=== PATIENT | female | born 1980 | race Caucasian/White ===

== ENCOUNTER 2022-02-03 15:19 | Outpatient (CLI) | payer OTHER, SELFPAY ==
[2022-02-05 21:21] LABS: Anti-Mullerian Hormone 1.637 ng/mL (<=6.282)
[2022-02-07 13:12] LABS: Progesterone, HPLC-MS/MS 10.91 ng/mL
== END 2022-02-03 15:20 | disposition home or self-care (01) ==
PROVIDERS: PCP Family Medicine; Visit Provider Physician Assistant
DX: Z31.69 Encounter for other general counseling and advice on procreation (principal)
CPT/HCPCS: 83520; 84144; 84443

== ENCOUNTER 2022-03-11 08:56 | Outpatient (CLI) | payer OTHER, SELFPAY | END 2022-03-11 08:57 | disposition home or self-care (01) | PROVIDERS: Physician Assistant; PCP Family Medicine; Visit Provider Obstetrics & Gynecology | DX: O20.9 Hemorrhage in early pregnancy, unspecified (principal); Z31.69 Encounter for other general counseling and advice on procreation | CPT/HCPCS: 84443; 84702; 86850; 86900; 86901 ==

== ENCOUNTER 2022-03-12 14:22 | Outpatient (CLI) | payer OTHER, SELFPAY | END 2022-03-12 14:23 | disposition home or self-care (01) | LOC: NFLDREF 14:23 | PROVIDERS: PCP Family Medicine; Visit Provider Advanced Practice Midwife | DX: O03.9 Complete or unspecified spontaneous abortion without complication (principal) | CPT/HCPCS: 85461; J2791 ==

== ENCOUNTER 2022-03-18 08:18 | Outpatient (CLI) | payer OTHER, SELFPAY ==
[2022-03-18 10:27] LABS: HCG Quantitative* 270.24 mIU/mL
== END 2022-03-18 08:19 | disposition home or self-care (01) ==
PROVIDERS: Advanced Practice Midwife; Obstetrics & Gynecology; PCP Family Medicine; Visit Provider Advanced Practice Midwife
DX: O03.9 Complete or unspecified spontaneous abortion without complication (principal); O20.9 Hemorrhage in early pregnancy, unspecified
CPT/HCPCS: 84702; 86850

== ENCOUNTER 2022-06-17 07:39 | Outpatient (CLI) | payer OTHER, SELFPAY ==
[2022-06-17 15:44] LABS: Chlamydia DNA Amplified* NOT DETECTED (No Detected); GC DNA Amplified* NOT DETECTED (No Detected)
== END 2022-06-17 07:40 | disposition home or self-care (01) ==
PROVIDERS: PCP Family Medicine; Visit Provider Physician Assistant
DX: Z34.90 Encounter for supervision of normal pregnancy, unspecified, unspecified trimester (principal)
CPT/HCPCS: 0353U; 84443; 86592; 86703; 86762; 86787; 86803; 86850; 86870; 86880; 86900; 86901; 87086; 87340; 87491; 87591

== ENCOUNTER 2022-06-17 09:04 | Outpatient (CLI) | payer OTHER, SELFPAY ==
--- NOTE | 2022-06-17 09:15 | CRLHL7_ITS ---
For Patients: As a result of the Cures Act, medical imaging exams and procedure reports are released immediately into your electronic medical record. You may view this report before your referring provider. If you have questions, please contact your health care provider. INDICATION: First trimester scan, establish dates. COMPARISON: None. TECHNIQUE: Real-time giles-scale imaging of the pelvis was performed. FINDINGS: Sonographic imaging demonstrates a single living intrauterine gestation. The embryo demonstrates a regular cardiac rate measuring 174 beats per minute. The embryo`s crown-rump length measurement of 3.0 cm corresponds to a gestational age of 10 weeks 0 days with a sonographic due date of 01/13/2023. There is a normal-appearing yolk sac. There are no gross abnormalities noted within the embryo at this early state of development. The gestational sac has a normal appearance. There is no evidence of a perigestational hemorrhage. The amount of fluid within the sac appears appropriate for gestational age. The cervix is closed. The myometrium appears normal. The ovaries are of normal size. There are no suspicious fluid collections noted in the cul-de-sac. IMPRESSION: Normal first trimester OB ultrasound exam. Gestational age calculated at 10 weeks 0 days with a sonographic due date of 01/13/2023. Dictated by Rodrigue Garza MD @ 06/17/2022 12:36:50 PM (Electronically Signed)
== END 2022-06-17 09:05 | disposition home or self-care (01) ==
PROVIDERS: PCP Family Medicine; Visit Provider Physician Assistant
DX: Z34.91 Encounter for supervision of normal pregnancy, unspecified, first trimester (principal); Z3A.10 10 weeks gestation of pregnancy
CPT/HCPCS: 76801

== ENCOUNTER 2022-08-19 07:41 | Outpatient (CLI) | payer OTHER, SELFPAY | END 2022-08-19 07:42 | disposition home or self-care (01) | LOC: NFLDREF 07:42 | PROVIDERS: PCP Family Medicine; Visit Provider Physician Assistant | DX: O09.522 Supervision of elderly multigravida, second trimester (principal); Z3A.18 18 weeks gestation of pregnancy | CPT/HCPCS: 84443 ==

== ENCOUNTER 2022-10-20 11:13 | Outpatient (CLI) | payer OTHER, SELFPAY | END 2022-10-20 11:14 | disposition home or self-care (01) | LOC: NFLDREF 10-21 12:28 | PROVIDERS: PCP Family Medicine; Referring Provider Family Medicine; Visit Provider Registered Nurse | DX: Z34.90 Encounter for supervision of normal pregnancy, unspecified, unspecified trimester (principal) | CPT/HCPCS: 86592; 86850 ==

== ENCOUNTER 2022-11-03 10:47 | Outpatient (CLI) | payer OTHER, SELFPAY | END 2022-11-03 10:48 | disposition home or self-care (01) | PROVIDERS: PCP Family Medicine; Visit Provider Physician Assistant | DX: O09.523 Supervision of elderly multigravida, third trimester (principal); Z3A.29 29 weeks gestation of pregnancy | CPT/HCPCS: 84443 ==

== ENCOUNTER 2022-11-23 09:46 | Outpatient (CLI) | payer OTHER, SELFPAY ==
--- NOTE | 2022-11-23 09:45 | CRLHL7_ITS ---
For Patients: As a result of the Century Cures Act, medical imaging exams and procedure reports are released immediately into your electronic medical record. You may view this report before your referring provider. If you have questions, please contact your health care provider. INDICATION: Third trimester scan, evaluate growth. Advanced maternal age. COMPARISON: 06/17/2022 TECHNIQUE: Real time giles scale imaging of the fetus was performed. FINDINGS: Sonographic imaging demonstrates a single living intrauterine gestation. Fetus demonstrates a regular cardiac rate of 146 beats per minute. Fetus has a breech position. The placenta lies posteriorly. Amniotic fluid volume appears normal and there is a single deepest vertical pocket: 5.6 cm. The estimated weight is 1937gm which lies at the 30th %. BPD 43rd percentile. HC 25th percentile. AC 31st percentile. FL 34th percentile. The HC/AC ratio measures 1.07 range (0.96-1.12). IMPRESSION: Sonographic gestational age 32 weeks 4 days and sonographic due date of 01/14/2023. Good correlation with dates. Estimated weight 30th percentile. Abdominal circumference 31st percentile. Dictated by Rodrigue Garza MD @ 11/23/2022 10:57:05 AM (Electronically Signed)
== END 2022-11-23 09:47 | disposition home or self-care (01) ==
LOC: US 09:46
PROVIDERS: PCP Family Medicine; Visit Provider Physician Assistant
DX: O09.523 Supervision of elderly multigravida, third trimester (principal); Z3A.32 32 weeks gestation of pregnancy
CPT/HCPCS: 76816

== ENCOUNTER 2022-12-21 07:15 | Outpatient (CLI) | payer OTHER, SELFPAY ==
--- NOTE | 2022-12-21 07:15 | CRLHL7_ITS ---
For Patients: As a result of the Century Cures Act, medical imaging exams and procedure reports are released immediately into your electronic medical record. You may view this report before your referring provider. If you have questions, please contact your health care provider. INDICATION: AMA, f/u growth COMPARISON: 11/23/2022 TECHNIQUE: Real time giles scale imaging of the fetus was performed. FINDINGS: Sonographic imaging demonstrates a single living intrauterine gestation. Fetus demonstrates a regular cardiac rate of 128 beats per minute. Fetus has a vertex position. The placenta lies posteriorly. Amniotic fluid volume appears normal and there is a single deepest vertical pocket: 4.6 cm. The estimated weight is 2715gm which lies at the 28th %. On the prior OB ultrasound exam dated 11/23/2022 the estimated weight was at the 30th%. BPD 26th percentile. HC 39th percentile. AC 35th percentile. FL 11th percentile. The HC/AC ratio measures 1.03 range (0.93-1.08). There is adequate diastolic blood flow within the umbilical artery. IMPRESSION: Sonographic gestational age 35 weeks 6 days and sonographic due date of 01/19/2023. Good correlation with dates. Normal interval growth. Estimated weight 28th percentile. Abdominal circumference 35th percentile. Dictated by Rordigue Garza MD @ 12/22/2022 12:06:55 PM (Electronically Signed)
== END 2022-12-21 07:16 | disposition home or self-care (01) ==
LOC: US 07:16
PROVIDERS: PCP Family Medicine; Visit Provider Obstetrics & Gynecology
DX: O36.5930 Maternal care for other known or suspected poor fetal growth, third trimester, not applicable or unspecified (principal); O09.523 Supervision of elderly multigravida, third trimester; Z3A.35 35 weeks gestation of pregnancy
CPT/HCPCS: 76816

== ENCOUNTER 2022-12-21 09:30 | Outpatient (CLI) | payer OTHER, SELFPAY ==
[2022-12-22 12:35] LABS: Strep B DNA Probe NEGATIVE (Negative)
[2022-12-22 12:49] LABS: Strep B Pen/Amox Allergy No
== END 2022-12-21 09:31 | disposition home or self-care (01) ==
LOC: NFLDREF 09:30
PROVIDERS: PCP Family Medicine; Visit Provider Obstetrics & Gynecology
DX: O09.523 Supervision of elderly multigravida, third trimester (principal); Z3A.35 35 weeks gestation of pregnancy
CPT/HCPCS: 87081; 87653

== ENCOUNTER 2023-01-11 16:17 | Inpatient (IN) | payer OTHER, SELFPAY ==
--- NOTE | 2023-01-11 16:24 | P.OBHP_ITS ---
OB - H&P: HPI Labor/Induction History of Present Illness Time Seen by Provider: 17:00 Date Seen: 01/11/23 Chief Complaint: The patient is a 42 year old 3 para 1 at 39 and 4/7 weeks gestation by LMP consistent with 10 week ultrasound, who presents for induction of labor in the setting of advanced maternal age. course is otherwise complicated by subclinical hypothyroidism, history of abnormal Pap test, and Rh-negative status with positive antibody screen (s/p rhogam for miscarriage, subsequently negative screen). Her complete H&P was completed by Dr. Connors on 12/28/22, please see this note for complete details. For concealing well today, no acute concerns. She has been having intermittent contractions, primarily non-painful. Denies regular/painful uterine contractions, vaginal bleeding or leaking of fluid. Endorses active movement. She previously completed her induction consent form, however the version signed into the record was blank. We did repeat written consent today after discussion of risks/benefits. Chief complaint: Maternity Narrative: Imelda Flores is a 42 year old female Specific Issues/Plans H&P 12/28/22 Dr. Connors [id number] 1. AMA, 42 at time of delivery * Maternity T21:negative, female! * Level 2 ultrasound:normal. Posterior placenta, no previa EFW 48% * Growth ultrasound at 32 weeks: EFW 1937 g or 4 lb 4 oz (30%), BPD 43%, HC 25%, AC 31%, FL 34%,SDP 5.6 cm, Breech * Weekly NST starting at 36 weeks * Recommend delivery at 39-40 weeks: Patient would prefer to schedule induction at 40 weeks gestation rather than 39 weeks gestation, because she is hoping for natural onset of labor. 2. Pre conception TSH was greater than 2.5, was started on levothyroxine 25 mcg. * TSH: .604 * TSH 08/19/22: 1.24 * TSH 11/03/22: 1.42 3. History of positive HPV in 2018. Normal Pap with negative HPV 07/17/2021 4. postive antibody screen * Anti-D, Rhogam given 03/12/22 (miscarriage) * Rhogam given for this on 10/20/22 5. Hgb at NOB, 11.5 * iron rich foods 6. RH neg - Rhogam given 10/20/22 7. Legging fundal height at 34 weeks * Growth ultrasound at 36 weeks: EFW 2715 g or 6 lb 0 oz (28%), BPD 26%, HC 39%, AC 35%, FL 11%, SDP 4.6 cm, vertex. FLU: 12/27/22 at her work TDAP: 11/03/22 Covid Booster: 12/27/22 at her work Meds Home Medications and Allergies Home Medications Medication Instructions Recorded Confirmed Type docosahexaenoic acid 200 mg mg PO 06/17/22 01/06/23 History capsule ( DHA) Allergies Allergy/AdvReac Type Severity Reaction Status Date / Time No Known Drug Allergies Allergy Verified 01/11/23 16:55 OB - H&P: Exam Physical Exam: Narrative: Physical exam: General: No acute distress Psych: Alert and oriented x3, full affect Heart: Regular rate and rhythm, no murmur rub or gallop Lungs: Clear to auscultation bilaterally Abdomen: Gravid. Otherwise soft and nontender. heart rate: Reactive NST. Baseline of 130 beats per minute, moderate variability, accelerations present, decelerations absent. Cervix: 1/50/-2 Presentation: Cephalic by US OB - Problem Based A/P Additional Plan (1) AMA (advanced maternal age) multigravida 35+: Status: Acute (2) care: Status: Acute Plan Ms. Flores is a 42yo at 39w4d GA admitted for IOL in the setting of AMA. ANC otherwise complicated by subclinical hypothyroidism, transiently positive Ab screen (anti-D, s/p rhogam for miscarriage). She is feeling well today, no acute concerns. Admit to Labor and delivery for induction of labor. Cervix is 1/50/-2, plan to start induction with cook catheter and pitocin at 0000. Verbal consent for cook catheter obtained after discussion of risks/benefits, unremarkable placement with uterine and vaginal balloons filled to 60cc. - Blood type O-negative, status post RhoGAM at 28 weeks. Plan to obtain cord blood following delivery. - GBS negative - EFW 3400g by Mike
[2023-01-11 16:49] VITALS: BMI 27.3
[2023-01-11 16:58] VITALS: BP 109/60; PULSE 68; RESP 16; TEMP 36.7
[2023-01-11 18:53] VITALS: BP 108/61; PULSE 71; RESP 18; TEMP 36.6
[2023-01-11 23:08] LABS: Basophils Absolute Auto 0.02 K/uL (0.00-0.30); Basophils Percent Auto 0.3 % (0.0-3.0); Eosinophils Absolute Auto 0.03 K/uL (0.00-0.50); Eosinophils Percent Auto 0.4 % (0.0-7.0); Hematocrit 34.2 % (33.0-51.0); Hemoglobin* 11.4 gm/dL (12.0-16.0); Immature Granulocytes Abs Auto 0.03 K/uL (0.00-0.30); Immature Granulocytes Pct Auto 0.4 %; Lymphocytes Percent Auto 17.2 % (20-44); Mean Corpuscular HGB Conc 33 gm/dL (32-36); Mean Corpuscular Hemoglobin 32 pg (26-34); Mean Corpuscular Volume 96 fL (80-100); Monocytes Percent Auto 12.3 % (0.0-11.0); Neutrophils Absolute Auto 5.48 K/uL (1.7-7.0); Neutrophils Percent Auto 69.4 % (42.0-72.0); Platelet Count* 226 K/uL (140-440); RDW Coefficient of Variation % 11.5 % (11.5-15.5); Red Blood Count 3.56 m/uL (4.00-5.20); White Blood Count* 7.89 K/uL (4.50-11.00)
[2023-01-11 23:09] VITALS: BP 105/58; PULSE 65
[2023-01-11 23:15] VITALS: RESP 16; TEMP 36.9
[2023-01-11 23:15] LABS: Slide Review Reflex No
[2023-01-11] MEDS: LACTATED RINGERS 1000 ML 1,000 ML 125 ML IV (23:30)
[2023-01-11] MEDS: OXYTOCIN 30 unit/500 ML in NS 30 UNIT/500 ML BAG IVPB (23:30)
[2023-01-12] VITALS (20 sets, daily range): BP systolic 102–127; BP diastolic 55–72; PULSE 53–76; RESP 15–16; TEMP 36.3–36.8; O2SAT 96–98
[2023-01-12] MEDS: LACTATED RINGERS 1000 ML 1,000 ML 125 ML IV (06:52)
--- NOTE | 2023-01-12 07:40 | P.OBPN_ITS ---
Subjective Time Seen by Provider: 07:35 Date Seen: 01/12/23 Narrative: The patient rates her contractions at 1-2/10. Complains of feeling miserable because of cough and congestion, couldn't sleep well overnight. Has had an URI since Tuesday. Has not used any cold medicine. Cook catheter fell out at 2300 last evening. Pitocin infusion ongoing. Objective Exam: Appearance: Alert, cooperative white female in no acute distress Vital Signs: Last Vital Signs Temp 98.3 F 01/12/23 06:13 Pulse 60 01/12/23 06:13 Resp 15 01/12/23 06:13 BP 106/56 L 01/12/23 06:13 Pulse Ox 98 01/12/23 02:33 Pelvic Exam Dilation (cm): 4 Effacement (%): 30 Station: -3 Comments: Last cervical exam done by nursing at 0233. Contractions Contraction Frequency: 2-3 minutes Contraction pattern: Regular Contraction intensity: Mild Pitocin Rate (mU/min): 8 Assessment Assessment: induction ongoing Status: Category l Heart Rate Baseline: 125 [place] Supervisor Variability: Moderate (6-25) Monitor Accelerations: Present Monitor Decelerations: None Plan Plan: Continue pitocin infusion. Consider amniotomy. Patient would like to eat breakfast first. Robitussin cough syrup prn.
[2023-01-12 09:00] LABS: SARS PCR* Negative SARS-CoV-2 (Negative)
[2023-01-12] MEDS: ONDANSETRON 2 MG/ML inj 4 MG IV (11:39)
--- NOTE | 2023-01-12 11:40 | PM.OBPNL ---
Subjective Time Seen by Provider: 10:16 Date Seen: 01/12/23 Narrative: The patient still rates her contraction discomfort at 2/10. Objective Exam: General appearance: Alert, cooperative white female in no acute distress Abdomen: Soft gravid, nontender Vital Signs: Last Vital Signs Temp 98.3 F 01/12/23 06:13 Pulse 71 01/12/23 09:51 Resp 15 01/12/23 06:13 BP 126/71 01/12/23 09:51 Pulse Ox 98 01/12/23 02:33 Pelvic Exam Dilation (cm): 5 Effacement (%): 70 Station: -2 Contractions Monitor mode: External Contraction Frequency: To minutes Contraction pattern: Regular Contraction intensity: Mild Pitocin Rate (mU/min): 5 Assessment Assessment: induction ongoing Amniotic Membrane Status: AROM (At 10:19 a.m., clear fluid) Status: Category ll Heart Rate Baseline: 135 Nursing Home Variability: Moderate (6-25) Monitor Accelerations: Present Monitor Decelerations: None Plan Plan: Amniotomy performed. Continue present management.
[2023-01-12] MEDS: lidocaine HCL 2 % JELLY (TOP) STERILE 6 ML TOPICAL (12:45)
[2023-01-12] MEDS: guaiFENesin 100 MG/ML CUP PO ×2 (12:45→17:26)
--- NOTE | 2023-01-12 13:08 | W.PM.OBVAGDE ---
OB Procedure Vag Delivery Mother Details Mother Details: The patient is a 42 year-old, 3, Para 1, admitted on 01/11/23 at Days gestation. : 3 Para: 1 Weeks Gestation: 39.5 Admission Date: 01/11/23 Additional Details Amniotic Membrane Status: AROM Amniotic Membrane Rupture Date: 01/12/23 Amniotic Membrane Rupture Time: 10:19 Amniotic Membrane Fluid Description: Clear Analgesia/Anesthesia Type: None Waterbirth: No Induction Method: Intracervical balloon catheter and per pitocin protocol Delivery augmentation: rupture of membranes Labor Onset: 12:00 Complete: 12:22 Pushin:22 Heart: heart tones during second stage were not obtained, as patient was in the shower and then delivered to since she got back into the bed. Delivery Details Delivery Date: 01/12/23 Delivery Time: 12:22 Route of delivery: Infant Gender: Female Viability: Alive; Heart Rate Present Delivery Details: Delivered over intact perineum via spontaneous vaginal delivery on the bed while I was enroute from the clinic. Infant was placed on maternal abdomen.? I entered the room just after the delivery. Cord was clamped and cut after a 30-60 second delay. Nose and mouth were bulb suctioned.? Infant weight pending. 1 Minute Interval Total Score: 8 5 Minute Interval Total Score: 9 Additional Details Shoulder Dystocia: No Placenta Delivery Time: 12:27 Placental Delivery Description: Spontaneous Delivery repair: Chromic (3-0) Procedure Done: Global Blood Loss: 50 Laceration: Periurethral - 2nd Degree (very near urethral meatus on the right) Blood Loss Measurement Type: QBL (50) Bakri Used: No Sponge/Need Count Correct: Yes Cord Vessel Description: 3 Vessels Event Summary Status: Mother and were stable after delivery. Disposition: floor
[2023-01-12] MEDS: ACETAMINOPHEN 500 MG TABLET 1000 MG PO (17:26)
[2023-01-13 00:30] VITALS: BP 111/70; PULSE 58; RESP 16; TEMP 37.1; O2SAT 96
[2023-01-13] MEDS: ACETAMINOPHEN 500 MG TABLET 1000 MG PO (00:35)
[2023-01-13 04:45] VITALS: BP 107/68; PULSE 58; RESP 16; TEMP 36.8; O2SAT 97
[2023-01-13 06:56] LABS: Hemoglobin* 11.1 gm/dL (12.0-16.0)
[2023-01-13 07:41] VITALS: BP 107/68; PULSE 54; RESP 16; TEMP 36.6; O2SAT 97
--- NOTE | 2023-01-13 07:42 | P.DS_ITS ---
DS: Providers Provider Date Seen: 01/13/23 Date of admission: 01/11/23 16:17 Primary care physician: Maci Rosas MD Admitting Clinician: Gill Smith MD Attending Physician on discharge: Patti Garcia APRN, GATO DS: Diagnosis Discharge Diagnosis (1) care and examination immediately after delivery: Status: Acute (2) Lactating mother: Status: Acute Exam Narrative: Exam Narrative: GENERAL APPEARANCE:? normal affect, alert, no distress MOOD:? appropriate CHEST:? clear to auscultation HEART:? regular rate and rhythm ABDOMEN:? soft, non-tender the uterine fundus is at Umbilicus, Midline and is appropriate for the stage of recovery. PERINEUM:? mild-moderate edema of the perineum, there is a Periurethral laceration, that is healing well. EXTREMITIES:? normal and trace edema Const: Vital Signs, click to edit/add: Vital Signs - 24 hr 01/12/23 08:13 01/12/23 09:51 01/12/23 11:45 Temperature Pulse Rate 63 71 57 L Pulse Rate [Pulse Oximeter] Respiratory Rate Blood Pressure 113/66 126/71 127/72 Blood Pressure [Le ft Arm] Pulse Oximetry Oxygen Delivery Az thod 01/12/23 11:45 01/12/23 12:29 01/12/23 12:29 Temperature 97.4 F L 97.7 F Pulse Rate 68 Pulse Rate [Pulse Oximeter] Respiratory Rate Blood Pressure 115/58 L Blood Pressure [Le ft Arm] Pulse Oximetry Oxygen Delivery Az thod 01/12/23 12:44 01/12/23 12:44 01/12/23 12:59 Temperature 97.6 F Pulse Rate 76 74 Pulse Rate [Pulse Oximeter] Respiratory Rate Blood Pressure 115/59 L 111/62 Blood Pressure [Le ft Arm] Pulse Oximetry Oxygen Delivery Az thod 01/12/23 12:59 01/12/23 13:14 01/12/23 13:14 Temperature 97.9 F 97.6 F Pulse Rate 53 L Pulse Rate [Pulse Oximeter] Respiratory Rate Blood Pressure 110/61 Blood Pressure [Le ft Arm] Pulse Oximetry Oxygen Delivery Az thod 01/12/23 13:29 01/12/23 13:29 01/12/23 13:44 Temperature 97.5 F L Pulse Rate 53 L 59 L Pulse Rate [Pulse Oximeter] Respiratory Rate Blood Pressure 108/60 106/60 Blood Pressure [Le ft Arm] Pulse Oximetry Oxygen Delivery Me thod 01/12/23 13:44 01/12/23 13:59 01/12/23 13:59 Temperature 97.9 F 97.7 F Pulse Rate 56 L Pulse Rate [Pulse Oximeter] Respiratory Rate Blood Pressure 107/60 Blood Pressure [Le ft Arm] Pulse Oximetry Oxygen Delivery Me thod 01/12/23 14:14 01/12/23 14:14 01/12/23 17:29 Temperature 98.1 F 97.8 F Pulse Rate 56 L Pulse Rate [Pulse Oximeter] 61 Respiratory Rate 15 Blood Pressure 111/62 Blood Pressure [Le ft Arm] 110/71 Pulse Oximetry 96 Oxygen Delivery Me thod Room Air 01/12/23 20:57 01/13/23 00:30 01/13/23 04:45 Temperature 98.0 F 98.7 F 98.3 F Pulse Rate Pulse Rate [Pulse Oximeter] 58 L 58 L 58 L Respiratory Rate 16 16 16 Blood Pressure Blood Pressure [Le ft Arm] 108/62 111/70 107/68 Pulse Oximetry 96 96 97 Oxygen Delivery Me thod Room Air Room Air Room Air Documenting provider has reviewed patient's vital signs: yes OB - DS: Summary Hospital Course Hospital Course: Imelda is a 42 y.o. G 3 P 2011 who was admitted to [facility] for induction of labor for AMA. ?She had a NVD that was uncomplicated. The patient feels well. ?The pain is well controlled with current medications. ?She has no new complaints. ?She is breast feeding and reports things are going well. the patient has done well.? Vitals have been stable.? She has remained afebrile.? Has a good appetite, is tolerating a general diet. ?She has a urinary catheter in place with plan to remove this morning. She does desire discharge but is aware she must be able to void before discharge. If not, recommend she stay another night. She is passing gas and has not had a bowel movement.? She is ambulating and denies any dizziness.? Has small amount of rubra lochia. Problems: Urinary catheter in place due to laceration. Plan removal this morning and discharge home if she is able to void without difficulty. plan: Discharge home with baby. Follow up in 2 weeks and 6 weeks. , may see if needed Hgb 11.1. Peripartum Data Infant delivery method: Vaginal Laceration description: Periurethral - 2nd Degree complications: none [place] Gender: Female Infant Discharge Plan: Home Status at Discharge Functional status at discharge: independent ambulation Overall status at discharge: patient is progressing back to baseline Time Spent with Patient Time attestation: Total time spent providing and/or coordinating discharge services: Time spent: Less than 30 minutes Discharge Plan Discharge Disposition: Home, Self-Care Date of Admission: 01/11/23 16:17 Primary Care Provider: Maci Rosas Condition: Stable Anticipated Discharge Date/Time: 01/13/23 16:00 Discharge Medications: New acetaminophen 500 mg Tablet 1,000 mg PO Q6H PRNQty: 0 0RF docusate sodium 100 mg Capsule 100 mg PO DAILY Qty: 90 0RF ibuprofen 600 mg Tablet 600 mg PO Q6H PRNQty: 60 0RF Continued DHA 200 mg capsule PO Discontinued levothyroxine 25 mcg tablet 25 mcg PO QDAY Qty: 90 3RF Discharge Orders: Discharge Order (Routine); Ordered 01/13/23 Ordered By: Patti Garcia Patient Education: OB Over the Counter Medication Information, OB Vaginal/Breast Feeding Additional Instructions: Discharge instructions were reviewed with the patient including signs and symptoms of infection and home going medications Nothing vaginally for 6 weeks: no tampons or intercourse Off Work or School for 6 weeks 2-week visit: discuss feeding concerns, review control options and screen for anxiety/depression. 6-week visit for an annual exam. consultation services are available to all mothers and babies for the first year after delivery.? To make an appointment, please call [phone]. Activity Level: Activity as Tolerated Discharge Diet: Regular Follow Up Appointments: [facility] [Provider Group] Forms: [facility] [facility] Info Instructions
[2023-01-13 13:00] VITALS: BP 107/68; PULSE 54; RESP 16; TEMP 36.6; O2SAT 97
== END 2023-01-13 15:15 | disposition home or self-care (01) | DRG 807 ==
PROVIDERS: Obstetrics & Gynecology; Admitting Provider Obstetrics & Gynecology; PCP Family Medicine; Visit Provider Obstetrics & Gynecology
DX: O99.284 Endocrine, nutritional and metabolic diseases complicating childbirth (principal); Z37.0 Single live birth; O70.1 Second degree perineal laceration during delivery; O26.893 Other specified pregnancy related conditions, third trimester; Z67.41 Type O blood, Rh negative; E03.8 Other specified hypothyroidism; O99.52 Diseases of the respiratory system complicating childbirth; J06.9 Acute upper respiratory infection, unspecified; Z3A.39 39 weeks gestation of pregnancy
CPT/HCPCS: 36415; 59200; 76815; 85018; 85025; 85461; 86850; 86870; 86880; 86900; 86901; 87635; A9270; C1726; J2371; J2405; J2791; J7120

== ENCOUNTER 2023-04-01 08:30 | Outpatient (RCR) | payer OTHER, SELFPAY | END 2023-07-13 10:04 | disposition home or self-care (01) | PROVIDERS: PCP Family Medicine; Visit Provider Physician Assistant | DX: N81.89 Other female genital prolapse (principal); R27.8 Other lack of coordination; N39.46 Mixed incontinence; Z51.89 Encounter for other specified aftercare | CPT/HCPCS: 97110; 97112; 97161; 97535 ==

== ENCOUNTER 2025-01-31 09:40 | Outpatient (CLI) | payer BC, SELFPAY | END 2025-01-31 09:41 | disposition home or self-care (01) | PROVIDERS: PCP Family Medicine; Visit Provider Family Medicine | DX: D50.9 Iron deficiency anemia, unspecified (principal); F41.1 Generalized anxiety disorder; Z13.1 Encounter for screening for diabetes mellitus; Z13.6 Encounter for screening for cardiovascular disorders | CPT/HCPCS: 80061; 82728; 82947 ==

== ENCOUNTER 2025-02-14 08:04 | Outpatient (CLI) | payer BC, SELFPAY ==
--- NOTE | 2025-02-14 09:49 | P.ANES_ITS ---
Anesthesia Charges Start Date/Time Anesthesia Start Date: 02/14/25 Anesthesia Start Time: 09:07 Stop Date/Time Anesthesia Stop Date: 02/14/25 Anesthesia Stop Time: 09:47 Coding CPT Codes CPT Codes: ANES LWR INTST NDSC NOS - 70136 ([id number]) P1 - NORMAL HEALTHY PATIENT, QZ - GENERAL FORECASTER SVC W/O HUMAN SERVICES CARE SPECIALIST BY
--- NOTE | 2025-02-14 09:49 | W.ANESCHARGE ---
Anesthesia Charges Start Date/Time Anesthesia Start Date: 02/14/25 Anesthesia Start Time: 09:07 Stop Date/Time Anesthesia Stop Date: 02/14/25 Anesthesia Stop Time: 09:47 Coding CPT Codes CPT Codes: ANES LWR INTST NDSC NOS - 84055 ([id number]) P1 - NORMAL HEALTHY PATIENT, QZ - RN WELLNESS SVC W/O SUPERVISOR LOADING BY
== END 2025-02-14 08:05 | disposition home or self-care (01) ==
LOC: OP CLINIC 08:04
PROVIDERS: PCP Family Medicine; Visit Provider Surgery
DX: Z12.11 Encounter for screening for malignant neoplasm of colon (principal); D12.1 Benign neoplasm of appendix; D12.2 Benign neoplasm of ascending colon; Z83.719 Family history of colon polyps, unspecified
CPT/HCPCS: 00811; 00812; 45385; J2704